=== PATIENT | male | born 1950 | race Caucasian/White ===

== ENCOUNTER 2018-05-15 09:30 | Outpatient (RCR) | payer MEDICARE, BC | END 2018-05-30 10:15 | disposition home or self-care (01) | LOC: MKS.ESL.PT 09:30 | DX: G62.9 Polyneuropathy, unspecified (principal) | CPT/HCPCS: G8990-GP; G8991-GP; G8992-GP ==

== ENCOUNTER 2018-05-30 09:15 | Outpatient (RCR) | payer SELFPAY | END 2018-05-30 10:15 | disposition home or self-care (01) | LOC: MKS.ESL.PT 09:15 | DX: G62.9 Polyneuropathy, unspecified (principal) ==

== ENCOUNTER → 2018-06-03 | Outpatient (REF) ==
[2018-06-03 09:56] LABS: THYROID STIMULATING HORMONE 1.33 uIU/mL (0.465-4.680)
[2018-06-03 10:58] LABS: PSA-TOTAL 3.08 ng/mL (0-4)
== END ==
LOC: ZLAB.WCH 09:07
PROVIDERS: Internal Medicine
DX: Z01.89 Encounter for other specified special examinations (principal)
CPT/HCPCS: G0103

== ENCOUNTER 2023-08-06 13:00 | Outpatient (RCR) | payer MEDICARE, BC | END 2023-08-20 | disposition still patient (30) | LOC: WSST | DX: R13.12 Dysphagia, oropharyngeal phase (principal) ==